=== PATIENT | female | born 1990 | race Caucasian/White ===

== ENCOUNTER 2024-09-06 16:20 | Emergency (ER) | payer OTHER | END 2024-09-06 18:50 | disposition home or self-care (01) | LOC: MW.ED 16:20 | DX: S51.811A Laceration without foreign body of right forearm, initial encounter (principal); Z88.0 Allergy status to penicillin; Z91.040 Latex allergy status; Z88.8 Allergy status to other drugs, medicaments and biological substances; W25.XXXA Contact with sharp glass, initial encounter; Y93.89 Activity, other specified | CPT/HCPCS: 99282 ==